=== PATIENT | female | born 2000 | race African-American/Black ===

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

== ENCOUNTER → 2020-04-23 | Outpatient (CLI) | payer OTHER ==
[~2020-04-23] MED LIST changes: +IBUPROFEN 600600 M1 PO
== END ==
LOC: SJCVCIMAG 14:39
PROVIDERS: ATTEND Internal Medicine
DX: R00.1 Bradycardia, unspecified (principal); R06.00 Dyspnea, unspecified; R00.2 Palpitations

== ENCOUNTER 2020-08-12 22:20 | Emergency (ER) | payer OTHER ==
[~2020-08-12] VITALS: Ht 175.3 cm; Wt 72.6 kg
[2020-08-12 22:29] VITALS: BP 125/75
== END 2020-08-12 23:32 | disposition home or self-care (01) ==
LOC: ER 22:20
DX: J02.9 Acute pharyngitis, unspecified (principal); F17.210 Nicotine dependence, cigarettes, uncomplicated

== ENCOUNTER 2020-08-29 21:31 | Emergency (ER) | payer OTHER ==
[~2020-08-29] VITALS: Ht 175.3 cm; Wt 72.6 kg
[2020-08-29 23:16] LABS: EOSINOPHILS 2.2 % (0.0-3.0); HEMATOCRIT 35.3 % (37.0-47.0); HEMOGLOBIN 11.3 gm/dL (12.0-15.0); MCH 26.5 pg (26.0-34.0); MCHC 32.2 g/dL (28.0-37.0); MCV 82.2 fL (80.0-100.0); MONOCYTES 5.6 % (1.0-8.0); PLATELET COUNT 376 thou/uL (150-400); POLYS 54.2 % (36.0-66.0); RBC 4.29 mil/uL (4.20-5.00); RDW 13.8 % (10.5-14.5); WBC 5.6 thou/uL (4.0-11.0)
[2020-08-29 23:18] LABS: ANION GAP 10 mmol/L (7-16); BUN 14 mg/dL (7-18); CALCIUM 8.8 mg/dL (8.5-10.1); CHLORIDE 104 mmol/L (98-107); CO2 26 mmol/L (21-32); CREATININE 0.9 mg/dL (0.6-1.0); GLUCOSE 112 mg/dL (74-106); POTASSIUM 3.3 mmol/L (3.5-5.1); SODIUM 140 mmol/L (136-145)
[2020-08-29 23:28] LABS: ALBUMIN 3.8 g/dL (3.4-5.0); SGOT 24 U/L (15-37); SGPT 18 U/L (30-65); TOTAL BILIRUBIN 0.4 mg/dL (0.2-1.0); TOTAL PROTEIN 7.6 g/dL (6.4-8.2); TROPONIN-I <0.06 ng/mL (<0.06)
[2020-08-30 00:11] VITALS: BP 107/50
--- NOTE | 2020-08-31 14:27 | EKG ---
[place] [address] [facility] [place] [address] ELECTROCARDIOGRAM REPORT Name: ZAC RANDALL Room #: [facility]#: [id number] Admission: 08/29/20 Attend Phys: Discharge: 08/29/20 Date of : 00 Report #: [id number] [facility] ED Test Date: 2020-08-29 Test Time: 22:02:35 Pat Name: ZAC RANDALL Department: Room: Gender: F Credit Authorizer: RAJIV : 2000 Requested By: Markus Castaneda Order Number: [id number] MD: Francis David Measurements Intervals [place] Rate: 62 P: 71 [place]: 133 QRS: 99 QRSD: 90 T: 53 QT: 402 QTc: 409 Interpretive Statements Sinus rhythm Borderline right axis deviation Compared to ECG 08/02/2019 08:38:55 Sinus bradycardia no longer present Electronically Signed On 08-31-2020 14:27:39 CDT by Francis David [email or web address] <ELECTRONICALLY SIGNED> By: Francis David MD, [facility] 08/31/20 1427 01 220 Francis David MD, FACC /EPI
== END 2020-08-29 23:30 | disposition home or self-care (01) ==
LOC: ER 21:31
PROVIDERS: Emergency Medicine
DX: R42 Dizziness and giddiness (principal); R07.89 Other chest pain; R20.2 Paresthesia of skin; F17.210 Nicotine dependence, cigarettes, uncomplicated